=== PATIENT | male | born 1945 | race Caucasian/White ===

== ENCOUNTER 2024-12-17 14:02 | Emergency (ER) | payer MEDICARE, SELFPAY ==
--- NOTE | ~2024-12-17 | XR_ITS ---
CLINICAL HISTORY: ecchyomisis pain. fracture? Exam: Right foot three views Comparison: None Findings: No acute fracture or dislocation. Hallux valgus with advanced osteoarthritis of 1st MTP, large osteophytes, sclerotic changes and severe joint space narrowing. Mild osteoarthritis of the 2nd DIP joint. And minimal degenerative changes of intertarsal joints dorsally. Small plantar calcaneal enthesophyte. Severe arteriosclerosis. Mild soft tissue swelling of the dorsum foot. Impression: No acute fracture. Dorsal foot soft tissue swelling. Hallux valgus with advanced OA of 1st MTP. This document has been electronically signed by: Debby Orosco MD on 12/17/2024 16:26:15
--- NOTE | ~2024-12-17 | US_ITS ---
CLINICAL HISTORY: Dusky painful. Occlusion questions Arterial duplex ultrasound right lower extremity Comparison: None provided Findings: Echogenic atherosclerotic disease of imaged arteries of the right lower extremity. Continuous, pulsatile flow with biphasic waveforms from common femoral through the posterior tibial arteries and anterior tibial artery, no focal hemodynamically significant stenosis, aneurysm or occlusion identified and velocities are within normal range. Peroneal artery midsegment demonstrates monophasic arterial waveform with decreased velocity. Peak systolic velocities: HOG DRIVER: 94 cm/s Profunda femoris: 59 cm/s SFA: 71-96 cm/s Popliteal A : 71 cm/s DRONE SOFTWARE DEVELOPMENT ENGINEER: 51 cm/s ELIZABETH: 65 cm/s Peroneal A: 19 cm/s IMPRESSION: 1. Probable significant stenosis proximal to mid peroneal artery. 2. Otherwise no hemodynamically significant stenoses on right lower extremity arterial duplex. This document has been electronically signed by: Debby Orosco MD on 12/17/2024 17:13:24
--- NOTE | ~2024-12-17 | US_ITS ---
CLINICAL HISTORY: Leg pain DVT? Right lower extremity venous duplex ultrasound. Comparison: None Findings: Exam was performed using grayscale ultrasound with assistance of color and spectral Doppler. The right common femoral, femoral, popliteal, and deep femoral veins as well as left common femoral vein are patent and free of thrombus. The veins are normally compressible with spontaneous phasic flow. Visualized right calf veins are patent. No Zamora's cyst is visualized. The greater saphenous vein is small in caliber, loss of normal compressibility with multiple peripheral hyperechogenicities, patent but decreased flow. Impression: No deep vein thrombosis of right lower extremity. 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 This document has been electronically signed by: Debby Orosco MD on 12/17/2024 16:58:20
--- NOTE | ~2024-12-17 | XR_ITS ---
CLINICAL HISTORY: ecchymosis. fracture Exam: Right tibia fibula two views Comparison: None Findings: No acute fracture or dislocation. No osseous lesion. Anterior ankle soft tissue swelling. Severe arteriosclerosis. Additional long tubular subcutaneous soft tissue calcification medial posterior calf, probably dystrophic calcification related to venous stasis. Impression: No acute osseous finding. This document has been electronically signed by: Debby Orosco MD on 12/17/2024 16:35:52
--- NOTE | ~2024-12-17 | CT_ITS ---
CLINICAL HISTORY: pain, bruises, swelling extending to the mid leg. Exam: CT of the right foot and CT of the right ankle Comparison: X-rays of the right foot from 12/17/2024 Findings: Severe osteoarthritis are redemonstrated including imaged interphalangeal joints and 1st metatarsophalangeal joint. Findings of gout and crystal deposition also considered of the 1st metatarsophalangeal joint. Fractures of the deformity of the base of the 1st proximal phalanx appear old/chronic with remodeling with mild subluxation. Ligament calcifications and vascular calcifications are multifocal. Moderate to severe osteoarthritis also involves of the imaged ankle with multiple loose bodies. Old avulsion fracture fragment noted at imaged deltoid ligament with likely osteochondral lesions of the imaged talus. Inflammatory arthropathy not excluded, particularly at ankle definitively articular surface lucencies and/articular surface irregularities, with small effusion by CT. No acute displaced fracture. No dislocation. No definite drainable abscess by noncontrast CT dorsal superficial fluid and/or edema noted particularly of the proximal foot. Additional mild plantar edema present. Question medial soft tissue mild ulceration versus redundant of the skin/dermis by CT. Impression: 1. Multifocal osteoarthritis, including severe osteoarthritis of the digits. 2. Additional joint changes of the 1st metatarsophalangeal joint are nonspecific and may be related to superimposed gout or crystal deposition. 3. Likely osteochondral lesions of the talus with severe osteoarthritis of the imaged ankle. This document has been electronically signed by: Ethan Spence MD on 12/17/2024 19:09:42
--- NOTE | ~2024-12-17 | XR_ITS ---
CLINICAL HISTORY: ecchymosis. fracture Exam: Right ankle three views Comparison: None Findings: No acute fracture or dislocation. Accessory ossicles or old avulsion fragments inferior to the medial malleolus. Mild degenerative changes of the midfoot. Plantar calcaneal traction enthesophytes. Anterior ankle soft tissue swelling, no ankle joint effusion. Severe arteriosclerosis. Impression: No acute fracture. This document has been electronically signed by: Debby Orosco MD on 12/17/2024 16:22:02
[2024-12-17 14:11] VITALS: BP 198/84; PULSE 74; RESP 20; TEMP 37; O2SAT 98; BMI 26.1
--- NOTE | 2024-12-17 14:22 | ED_ITS ---
HPI - General Adult General Chief complaint: Extremity Injury, Lower Stated complaint: r foot pain Time Seen by Provider: 12/17/24 16:32 Source: patient and family ( spouse) Mode of arrival: ambulatory Limitations: no limitations History of Present Illness ED Provider: DR. Camacho HPI narrative: 79-year-old male came in for evaluation of right foot pain that is started 1 week ago, describe it as a sudden onset of right foot pain and swelling while he was walking last week declined any injury or trauma to the right foot, pain is worsening for a week and noticed swelling and ecchymosis to the right foot extending up to the mid leg. No recent travel, no history of DVT. No fever, no chills. Related Data Allergies Allergy/AdvReac Type Severity Reaction Status Date / Time [id number] Reductase Allergy Unknown Verified 12/17/24 14:19 Inhibitor cortisone AdvReac Swelling Verified 12/17/24 14:18 Review of Systems 2 Review of Systems: All other systems are reviewed and are negative Constitutional: Reports as per HPI and Reports no additional constitutional complaints Eyes: Reports as per HPI and Reports no additional eye complaints Reports system reviewed and no additional complaints, except as documented Cardiovascular: Reports as per HPI and Reports no additional cardiovascular complaints Respiratory: Reports as per HPI and Reports no additional respiratory complaints Gastrointestinal: Reports as per HPI and Reports no additional gastrointestinal complaints Genitourinary: Reports no additional female genitourinary complaints Musculoskeletal: Reports no additional musculoskeletal complaints Skin/Breast: Reports system reviewed and no additional complaints, except as docu Psychiatric: Reports no additional psychiatric complaints Endocrine: Reports no additional endocrine complaints Hematologic/Lymphatic: Reports no additional hematologic/lymphatic complaints Allergic/Immunologic: Reports no additional allergic/immunologic complaints Reports system reviewed and no additional complaints, except as documented and Reports Abnormal speech present Physical Exam ED Vital Signs: Vital Signs - 24 hr 12/17/24 14:11 12/17/24 19:35 Temperature 98.6 F 98.5 F Pulse Rate 74 78 Respiratory Rate 20 20 Blood Pressure 198/84 H 176/88 H Pulse Oximetry 98 98 Oxygen Delivery Method Room Air Room Air BMI result Body Mass Index 26.1 Vital signs have been reviewed and appear to be correct. Blood pressure elevated. Heart rate normal. Respiratory rate normal. Temperature normal. Oxygen saturation normal. Appearance: Alert. Oriented X3. No acute distress. Head: Normal external exam. Normocephalic. Atraumatic. No Sampson signs noted. No raccoon eyes noted Eyes: PERRLA. EOMI. Conjunctiva and sclera normal. Eyelids normal. ENT: TM's Normal. Pharynx normal. Uvula midline. Moist mucous membranes. No trismus noted. No drooling noted. No muffled voice noted. Neck: Normal inspection. Neck supple. FROM. No adenopathy. Thyroid Normal. No meningeal signs. No neck mass noted. CVS: Normal heart rate and rhythm. Heart sound normal. No murmurs noted. Pulses normal throughout. Respiratory: No respiratory distress. Painless inspiration. Breath sounds normal. No wheezes/rales/rhonchi noted. Chest nontender. No accessory muscle usage noted or decreased air movement noted. Abdomen: Soft and nontender. Bowel sounds normal in all 4 quadrants. No distention noted. No organomegaly noted. No visible injury noted. Back: No CVA tenderness. Full range of motion noted. Skin: Skin warm and dry. Normal skin color. Normal skin turgor. No rashes/lesions/lacerations noted. Extremities: Right foot exam: Ecchymosis and swelling to the dorsum of the right foot with tenderness over the mid foot, no deformity or step-off, neurovascularly intact. Neuro: Oriented X 3. Cranial nerve exam: II-XII are grossly intact No motor deficit. No sensory deficit. Reflexes normal. Course Course Course Narrative: RME: 79 year male history of arthritis presents to ED for right lower extremity ecchymosis and pain without any trauma. Patient states ecchymosis spread for base of foot up to thight. Right lower extremity normal temperature. Vascular motor intact. Patient is ex-smoker. 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 Ray (Vascular surgeon on-call). as an outpatient. CT of the lower extremity is consistent with multiple joint of osteoarthritis with no acute findings. No thrombocytopenia or coagulopathy to explain a spontaneous ecchymosis. Patient was instructed to follow-up with his PCP, elevate the leg for the swelling, take Tylenol if needed for pain. Time: 19:38 Medical Decision Making Differential Diagnosis Differential Diagnoses: The differential diagnosis associated with the presentation includes ( Thrombocytopenia, coagulopathy, foot fracture, osteoarthritis, DVT, Ischemic lower extremity.) Admission/Observation Consideration of admission/observation: Escalation of care including admission/observation considered Lab Data MDM Lab Attestation statement: I reviewed the patient's lab results. 12/17/24 14:32 12/17/24 14:32 Labs: Lab Results 12/17/24 Range/Units 14:32 WBC 6.0 (4.8-10.8) X10*3/uL RBC 3.88 L (4.60-5.80) X10*6/uL Hgb 13.1 L (14.0-18.0) g/dl Hct 36.8 L (42.0-52.0) % MCV 94.8 (80.0-98.0) fL MCH 33.8 H (27.0-33.0) pg MCHC 35.6 (31.0-36.0) g/dl RDW 12.9 (11.0-16.0) % Plt Count 276 (160-400) X10*3/uL MPV 8.6 L (9.4-12.4) fL Immature Gran % (Auto) 0.3 (0.0-0.4) % Neut % (Auto) 78.8 H (45-73) % Lymph % (Auto) 11.9 L (20-40) % [place] % (Auto) 7.5 (2-11) % Eos % (Auto) 0.8 (0-4) % Baso % (Auto) 0.7 (0-2) % Lymph # (Auto) 0.7 L (1.2-4.9) X10*3/uL [place] # (Auto) 0.5 (0.1-1.2) X10*3/uL Eos # (Auto) 0.1 (0.0-0.4) X10*3/uL Baso # (Auto) 0.0 (0.0-0.2) X10*3/uL Abs Immat Gran (auto) 0.02 (0.00-0.03) X10*3/uL Absolute Neuts (auto) 4.8 (2.0-8.3) x10*3/uL Absolute Nucleated RBC 0.000 (0.0-0.012) X10*3/uL Nucleated RBC % (auto) 0.0 (0.0-0.2) /100WBC ESR 44 H (0-15) MM/HR PT 11.9 (10.9-12.4) SEC INR 1.0 (0.9-1.1) APTT 29.5 (26.7-34.1) SEC Sodium 139 (135-145) mmol/L Potassium 4.2 (3.3-5.1) mmol/L Chloride 106 (96-108) mmol/L Carbon Dioxide 19 L (22-29) mmol/L Anion Gap 18 (12-20) BUN 23 H (9-16) mg/dL Creatinine 0.78 (0.5-1.4) mg/dL Estim Creat Clear Calc 75.5 Estimated GFR > 60 Random Glucose 117 H (60-115) mg/dL Calcium 9.8 (8.4-10.2) mg/dL Total Bilirubin 0.6 (0.0-1.0) mg/dL AST 37 (5-37) U/L ALT 30 (0-40) U/L Alkaline Phosphatase 103 (39-117) U/L C-Reactive Protein 2.08 H (< or = 0.50) mg/dL Total Protein 7.7 (6.5-8.0) g/dL Albumin 4.5 (3.5-5.0) g/dL Independent Interpretation I performed an independent interpretation of an: Ultrasound ( Venous /arterial ultrasound:Probable significant stenosis proximal to mid peroneal artery. /No deep vein thrombosis of right lower extremity. Sonographic findings suggestive of chronic nonocclusive superficial venous thrombosis of right greater saphenous vein.) and CT Scan ( left le. Multifocal osteoarthritis, including severe osteoarthritis of the digits. 2. Additional joint changes of the 1st metatarsophalangeal joint are nonspecific and may be related to superimposed gout or crystal deposition. 3. Likely osteochondral lesions of the talus with severe osteoarth) Radiology Impression Discussion of test interpretation with radiology: I have reviewed the radiologist's reading. Discharge Plan Discharge Clinical Impression: Arthralgia of foot, right Patient Disposition: Home, Self-Care Instructions: Arthralgia (ED) Additional Instructions: elevate your right leg when he sleep with 2 pillows, use ibuprofen 200 mg or Tylenol ([id number] ) every 6 hours if needed for pain. Follow-up with Dr. Ray as discussed. Referrals: Jose Ray MD [Physician, Vascular Surgery] Interventions: ED Discharge Assessment Last Done: 12/17/24 19:50 Discharge Date/Time: 12/17/24 19:51 Print Language: Liberian
[2024-12-17 14:37] LABS: MANUAL DIFF FLAG NO
[2024-12-17 14:38] LABS: Hematocrit 36.8 % (42.0-52.0); Hemoglobin 13.1 g/dl (14.0-18.0); Imm Gran Abs Auto 0.02 X10*3/uL (0.00-0.03); Imm Gran Pct Auto 0.3 % (0.0-0.4); Lymphocytes Absolute Auto 0.7 X10*3/uL (1.2-4.9); Mean Corpuscular HGB Conc 35.6 g/dl (31.0-36.0); Mean Corpuscular Hemoglobin 33.8 pg (27.0-33.0); Mean Corpuscular Volume 94.8 fL (80.0-98.0); NRBC Abs Auto 0.000 X10*3/uL (0.0-0.012); NRBC Pct Auto 0.0 /100WBC (0.0-0.2); Platelet Count 276 X10*3/uL (160-400); Red Blood Count 3.88 X10*6/uL (4.60-5.80); White Blood Count 6.0 X10*3/uL (4.8-10.8)
[2024-12-17 14:44] LABS: INTERNATIONAL NORM RATIO 1.0 (0.9-1.1); Prothrombin Time 11.9 SEC (10.9-12.4)
[2024-12-17 14:47] LABS: Partial Thromboplastin Time 29.5 SEC (26.7-34.1)
[2024-12-17 14:53] LABS: Alanine Aminotransferase 30 U/L (0-40); Albumin Level 4.5 g/dL (3.5-5.0); Alkaline Phosphatase 103 U/L (39-117); Anion Gap 18 (12-20); Aspartate Amino Transferase 37 U/L (5-37); Blood Urea Nitrogen 23 mg/dL (9-16); Calcium 9.8 mg/dL (8.4-10.2); Carbon Dioxide 19 mmol/L (22-29); Chloride 106 mmol/L (96-108); Creatinine Clr Calc Pharmacy 75.5; Estimated Glomerular Filt Rate > 60; Potassium 4.2 mmol/L (3.3-5.1); Sodium 139 mmol/L (135-145); Total Protein 7.7 g/dL (6.5-8.0)
[2024-12-17 19:35] VITALS: BP 176/88; PULSE 78; RESP 20; TEMP 36.9; O2SAT 98
[2024-12-17 19:50] VITALS: BP 176/88; PULSE 78; RESP 20; TEMP 36.9; O2SAT 98
== END 2024-12-17 19:51 | disposition home or self-care (01) ==
PROVIDERS: Physician Assistant; Emergency Provider Emergency Medicine; PCP Internal Medicine
DX: M25.571 Pain in right ankle and joints of right foot (principal); M79.671 Pain in right foot; M25.471 Effusion, right ankle; R58 Hemorrhage, not elsewhere classified; I82.811 Embolism and thrombosis of superficial veins of right lower extremity; R93.6 Abnormal findings on diagnostic imaging of limbs
CPT/HCPCS: 36415; 73590; 73610; 73620; 73700; 80053; 85025; 85610; 85652; 85730; 86140; 93926; 93971; 99282; 99284

== ENCOUNTER → 2024-12-17 14:20 | Outpatient (BNV) | payer MEDICARE, SELFPAY | PROVIDERS: Emergency Provider Emergency Medicine; PCP Internal Medicine; Visit Provider Radiology Diagnostic Radiology | DX: M19.071 Primary osteoarthritis, right ankle and foot (principal); M79.661 Pain in right lower leg; M79.604 Pain in right leg; S90.01XA Contusion of right ankle, initial encounter; M20.11 Hallux valgus (acquired), right foot | CPT/HCPCS: 73590; 73610; 73620; 73700; 93926; 93971 ==

== ENCOUNTER 2025-02-07 09:40 | Outpatient (AMB) | payer MEDICARE, SELFPAY ==
[2025-02-07 09:42] VITALS: BP 150/84; BMI 26.1
--- NOTE | 2025-02-07 09:42 | MHC.OFFVIS ---
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 s/p Arterial US 12/17/24 Intake Note: New patient from the ED dx PAD after Arterial u/s on 12/17/24 feeling better Wood Floor Layer Required: No Dentist Private Practice: Dentist Private Practice Present Accompanied by: Spouse Allergies [id number] Reductase Inhibitor Allergy (Verified 12/17/24 14:19) Unknown aspirin (From Mel Aspirin) Adverse Reaction (Severe, Verified 02/07/25 09:48) bleeding cortisone Adverse Reaction (Verified 12/17/24 14:18) Swelling HPI HPI 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 He was referred from the emergency room where he initially reported severe pain rated at 10/10, which has since improved significantly. The patient experienced a sudden onset of sharp pain in his leg while descending stairs, described as a snap, leading to an emergency room visit. Initial evaluations revealed a partial arterial blockage, but further consultation with a foot doctor diagnosed a tendon rupture. The patient has been using a boot, which has reduced his pain from 10 to 2, allowing him to walk without a crutch at times. The patient has a history of smoking from age 13 to his 20s and was previously diagnosed with diabetes, which he managed to reverse by losing 50 pounds during the COVID- pandemic. He reported significant alcohol consumption, previously drinking 24 five-liter boxes of wine per month, which he has since reduced significantly. Of note he has been followed for carotid disease. In addition he does report phlebitic veins in the right and left calf as well. He now presents for overall vascular evaluation. Review of Systems Const All systems reviewed & are unremarkable except as noted in HPI and below Reports no additional complaints ENT Reports Normal hearing present Card Denies chest pain, Denies chest pain at rest, Denies chest pain with activity and Denies pedal edema Resp Denies cough GI Denies abdominal pain Musc Denies abnormal gait, Denies muscle cramps and Denies radiating pain into limb Skin/Breast Denies skin ulcer and Denies wounds Neuro Reports Normal hearing present and Denies abnormal gait Psych Reports no additional complaints Physical Exam Vital Signs: Last Vital Signs BP 150/84 H 02/07/25 09:42 BMI result Body Mass Index 26.1 Const General: cooperative, healthy appearing and comfortable Orientation/consciousness: oriented to person, oriented to place and oriented to time HEENT Head: Yes normal to inspection Neck Neck: Yes normal visual inspection Carotids: no bruits Chest Chest palpation & inspection: normal inspection of the chest Resp Effort & Inspection: normal respiratory effort and able to speak in complete sentences Auscultation: clear to auscultation bilaterally, no crackles, no rales, no rhonchi and no wheezes Cardio Other: Palpable left dorsalis pedis pulse and right DP signals Rate: regular rate Rhythm: regular rhythm Heart sounds: S1 normal heart sound present and S2 normal heart sound present Bruits: no carotid bruits GI Inspection: Yes normal to inspection Skin Wounds: no wounds Hair: normal Neuro General: oriented to person, oriented to place and oriented to time Cranial nerves: Yes CN's II-XII intact bilaterally and Yes Normal hearing present Cognition (Neuro): normal cognition Motor exam (neuro): 5/5 motor strength present throughout Extrem Other: venous exam: +1 edema evidence of phlebitic veins. That appeared to be resolving. General: No clubbing, No cyanosis and No edema Psych Appearance: grossly normal Mental Status: mental status grossly normal Speech and movement: Normal speech and movement present Assessment & Plan Assessment & Plan (1) PAD (peripheral artery disease): Code(s): I73.9 - Peripheral vascular disease, unspecified Category: Medical Plan: I discussed with the patient the current status of his peripheral vascular disease and the plan to repeat the arterial ultrasound in six months to monitor any changes. I did review his testing and it does appear that he has fairly reasonable arterial circulation. We also reviewed the management of his tendon rupture, emphasizing the importance of continued use of the boot and the upcoming soft tissue ultrasound. Once again he will follow up with us in approximately 6 months time for routine arterial surveillance follow-up. I do believe he has adequate circulation to heal this tendon rupture. (2) Bilateral carotid artery stenosis: Code(s): I65.23 - Occlusion and stenosis of bilateral carotid arteries Category: Medical Plan: I do appreciate carotid bruits. He has been surveilled for carotid stenosis. We will be scheduling him for six-month carotid ultrasound to coordinate with his arterial testing as well. (3) Varicose veins of right lower extremity with inflammation: Code(s): I83.11 - Varicose veins of right lower extremity with inflammation Category: Medical Plan: On physical I did appreciate varicose veins with evidence of phlebitis. They do appear to be resolving. Once again I would like the tendon rupture to improve we will see him back in approximately 6 months time to readdress all vascular issues. This was all discussed in detail with the patient and he demonstrated a clear understanding. Thank you for allowing us to assist in his care. If there are any questions or concerns please do not hesitate to contact us. Plan Patient was informed and verbally consented to the use of an ambient scribe for clinic note documentation during this visit. Orders: Orders US arterial duplex LE BI 6 Months I73.9 - Peripheral vascular disease, unspecified US carotid duplex BI 6 Months I65.23 - Occlusion and stenosis of bilateral carotid arteries Patient Instructions: - Continue using the boot to manage tendon rupture pain and improve mobility. - Use warm compresses and Tylenol for phlebitis symptoms. - Monitor for any redness or heat in the affected area and seek follow-up if symptoms worsen. - Attend the scheduled soft tissue ultrasound and follow up with the results. Coding Level of Care Code New Pt Level 4 (53140) Diagnoses PAD (peripheral artery disease) I73.9 Bilateral carotid artery stenosis I65.23 Varicose veins of right lower extremity with inflammation I83.11
== END 2025-02-07 10:20 | disposition home or self-care (01) ==
LOC: HO.HVS 09:41
PROVIDERS: PCP Internal Medicine; Visit Provider Surgery Vascular Surgery
DX: I73.9 Peripheral vascular disease, unspecified (principal); I65.23 Occlusion and stenosis of bilateral carotid arteries; I83.11 Varicose veins of right lower extremity with inflammation
CPT/HCPCS: 99204

== ENCOUNTER → 2025-02-07 09:40 | Outpatient (BNVA) | payer MEDICARE, SELFPAY | PROVIDERS: PCP Internal Medicine; Visit Provider Surgery Vascular Surgery | DX: I83.11 Varicose veins of right lower extremity with inflammation (principal); I65.23 Occlusion and stenosis of bilateral carotid arteries; I73.9 Peripheral vascular disease, unspecified | CPT/HCPCS: 99202 ==